=== PATIENT | female | born 1960 | race Caucasian/White ===

== ENCOUNTER 2021-07-21 22:02 | Emergency (ER) | payer MEDICARE, SELFPAY ==
[2021-07-21 22:02] VITALS: BP 162/96; PULSE 111; RESP 22; TEMP 36.8; O2SAT 96; BMI 32.3; BMI 35.5
--- NOTE | 2021-07-21 22:22 | ECG_ITS ---
APPROVED REPORT Exam: Resting ECG HR:113 bpm ECG Measurements Heart Rate 113 AXES QRSd 86 QRS 65 QT 494 T 92 QTc 677 Conclusion Atrial fibrillation with rapid ventricular response Possible Anterior infarct, age undetermined Abnormal ECG Electronically signed by : Charlie Mccormack MD 07/25/2021 21:02:54
--- NOTE | 2021-07-21 22:30 | XR_ITS ---
PROCEDURE INFORMATION: Exam: XR Chest Exam date and time: 07/21/2021 10:30 PM Age: 60 years old Clinical indication: Shortness of breath; Patient HX: SOA; Additional info: Increased hr TECHNIQUE: Imaging protocol: XR of the chest. Views: 1 view. COMPARISON: No relevant prior studies available. FINDINGS: Lungs: Unremarkable. No consolidation. Granulomatous change. Pleural spaces: Unremarkable. No pleural effusion. No pneumothorax. Heart/Mediastinum: Unremarkable. No cardiomegaly. Bones/joints: Unremarkable. IMPRESSION: No acute findings.
[2021-07-21 22:46] LABS: Basophils # 0.1 K/mm3 (0-0.2); Basophils % 0.6 % (0.1-2.0); Eosinophils # 0.2 K/mm3 (0.0-0.4); Hematocrit 42.3 % (37.0-47.0); Lymphocytes # 1.8 K/mm3 (0.7-4.5); Mean Corpuscular HGB Conc 33.2 g/dL (31.8-35.4); Mean Corpuscular Hemoglobin 29.4 pg (27.0-31.2); Mean Corpuscular Volume 88.4 fl (81-99); Mean Platelet Volume 8.4 fl (7.4-10.4); Monocytes # 0.8 K/mm3 (0.1-1.0); Neutrophils # 13.2 K/mm3 (1.8-7.8); Neutrophils % 82.2 % (37.0-80.0); Platelet Count 398 K/mm3 (142-424); Red Blood Count 4.78 M/mm3 (4.20-5.40); Red Cell Distribution Width 13.3 % (11.5-17.5); White Blood Count 16.1 K/mm3 (4.8-10.8)
[2021-07-21 22:49] LABS: MANUAL DIFFERENTIAL MANUAL DIFFERENTIAL (MANUAL DIFF)
[2021-07-21 23:00] LABS: Alanine Aminotransferase 16 U/L (12-78); Albumin Level 4.4 g/dl (3.5-5.0); Albumin/Globulin Ratio 1.3 (1.1-1.8); Alkaline Phosphatase 115 U/L (38-126); Anion Gap 18.3 mEq/L (5-15); Aspartate Amino Transferase 26 U/L (14-36); Bilirubin,Total 0.7 mg/dl (0.2-1.3); Blood Urea Nitrogen 26 mg/dl (7-17); Carbon Dioxide 22 mmol/L (22.0-30.0); Chloride 104 mmol/L (98-107); Creatinine Clearance Estimated 71 mL/min (50-200); Estimated Glomerular Filt Rate 42 ml/min (>60); GFR (African American) 50 ML/MIN (>60); Globulin 3.5 g/dL (1.3-3.2); Glucose 132 mg/dl (74-100); Potassium 4.3 mmoL/L (3.5-5.1); Sodium 140 mmol/L (136-145); Total Protein,Serum 7.9 g/dl (6.3-8.2)
[2021-07-21 23:05] LABS: C-Reactive Protein 39.2 mg/L (0-4); Magnesium 1.8 mg/dl (1.6-2.3)
[2021-07-21 23:09] LABS: Lymphocytes % 14 % (10-50); Monocytes % 11 % (2-9); Neutrophils % 75 % (42-76); Platelet Estimate Normal; RBC Morphology Normal; Total Cells Counted 100
[2021-07-21 23:18] LABS: Troponin I < 0.01 ng/ml (0.00-0.034)
[2021-07-21 23:19] LABS: Procalcitonin 0.176 ng/mL (0.0-2.0)
[2021-07-21 23:20] LABS: Erythrocyte Sedimentation Rate 25 mm/hr (0-30)
[2021-07-21 23:31] VITALS: BP 164/93; PULSE 109; RESP 21; O2SAT 97
[2021-07-22 00:04] VITALS: BP 161/90; PULSE 109; RESP 21; O2SAT 97
--- NOTE | 2021-07-22 00:56 | HMH.EDGENADL ---
ED Disposition Clinical Impression: Renal insufficiency Disposition: Home, Self-Care Condition on Discharge: Good Instructions: DI for Acute Pain -- Adult Additional Instructions: fluids and see pcp for follow up Referrals: Germán Dumas [Primary Care Provider] - - Critical Care Critical Care Time: No Attestation: On 07/21/21, the high probability of a clinically significant, sudden or life threatening deterioration of the following system(s) required my full and direct attention, intervention and personal management. The time I documented below is in addition to time spent performing reported procedures but includes the following listed in this critical care notation. Medical Decision Making - Medical Records Medical records reviewed: Yes: I reviewed the patient's medical records. - Asim Inquiry Pt receiving controlled substance: No Vital Signs: 07/21/21 22:02 07/21/21 23:31 07/22/21 00:04 Temperature 98.2 F Temperature Source Oral Pulse Rate 109 H 109 H Pulse Rate [Right] 111 H Respiratory Rate 22 21 21 Blood Pressure 164/93 H 161/90 H Blood Pressure [Right Arm] 162/96 H Blood Pressure Mean [Right Arm] 118 Blood Pressure Source [Right Arm] Automatic Cuff 02 Sat by Pulse Oximetry 96 97 97 Oxygen Delivery Method Room Air - Lab Data Lab results reviewed: Yes: I reviewed the patient's lab results. Lab Results 07/21/21 22:37: WBC 16.1 H, RBC 4.78, Hgb 14.0, Hct 42.3, MCV 88.4, MCH 29.4, MCHC 33.2, RDW 13.3, Plt Count 398, MPV 8.4, Neut % (Auto) 82.2 H, Lymph % (Auto) 11.0, [place] % (Auto) 5.0, Eos % (Auto) 1.0, Baso % (Auto) 0.6, Neut # (Auto) 13.2 H, Lymph # (Auto) 1.8, [place] # (Auto) 0.8, Eos # (Auto) 0.2, Baso # (Auto) 0.1, Total Counted 100, Neutrophils % (Manual) 75, Lymphocytes % (Manual) 14, Monocytes % (Manual) 11 H, Platelet Estimate Normal, RBC Morphology Normal, ESR 25 07/21/21 22:37: Sodium 140, Potassium 4.3, Chloride 104, Carbon Dioxide 22, Anion Gap 18.3 H, BUN 26 H, Creatinine 1.30 H, Estimated Creat Clear 71, Estimated GFR 42 L, Est GFR ( Amer) 50 L, Glucose 132 H, Calcium 10.0, Total Bilirubin 0.7, AST 26, ALT 16, Alkaline Phosphatase 115, C-Reactive Protein 39.2 H, Total Protein 7.9, Albumin 4.4, Globulin 3.5 H, Albumin/Globulin Ratio 1.3, Procalcitonin 0.176 07/21/21 22:37: Magnesium 1.8, Troponin I < 0.01 07/21/21 23:10: Lactate 1.0 Result diagrams: 07/21/21 22:37 07/21/21 22:37 Orders (Tests/Meds): ED MEDICATIONS Generic Name Dose Route Start Last Admin Trade Name Freq PRN Reason Stop Dose Admin Lactated Ringer's 1,000 mls @ 999 mls/hr 07/21/21 22:30 07/21/21 22:37 Lactated Ringer's 1000 Ml Bag IV 07/21/21 23:30 999 mls/hr .Q1H1M DELFINA Administration ORDERS Category Date Time Status Troponin I Q3H Lab 07/22/21 01:45 Ordered Troponin I Q3H Lab 07/22/21 04:45 Ordered UA [Urinalysis and Microscopic] Stat Lab 07/21/21 22:04 Ordered UDS [Drug Screen,Urine] Stat Lab 07/21/21 22:17 Ordered Blood Culture Stat Micro 07/21/21 23:10 Received - Radiology Data #1 Image(s): Chest Image Reviewed: Yes I have reviewed radiologist's interpretation Preliminary Findings: Normal/NAD - ECG Data Tracing #1 Arrhythmias present: sinus tach Ischemic changes: non-specific ST-T wave changes Medical Decision Narrative: stable exam and no acute labs - will ask pt to see pcp for follow up General Adult HPI - General Chief complaint: PAIN Stated complaint: Leg Cramps Time Seen by Provider: 07/21/21 23:15 Mode of Arrival: EMS Source of Information: Patient, EMS, Medical Record Limitations: No Limitations Description of Symptoms (Recalled from ER Triage Doc. by RN): Pt c/o leg cramping and tightness to legs. She states she took 3 or 4 of my room mate's Adderal . Pt states she has been laying down alot and has been depressed so she thought this might help her. Pt is jittery and is a poor historian, as she usualy seeks care at
[2021-07-22 01:22] VITALS: BP 159/89; PULSE 109; RESP 18; TEMP 36.7; O2SAT 97
== END 2021-07-22 01:26 | disposition home or self-care (01) ==
PROVIDERS: Emergency Provider Emergency Medicine; PCP Pediatrics
DX: N28.9 Disorder of kidney and ureter, unspecified (principal); R25.2 Cramp and spasm; F32.9 Major depressive disorder, single episode, unspecified
CPT/HCPCS: 71045; 80053; 83605; 83735; 84145; 84484; 85007; 85025; 85651; 86140; 87040; 93005; 96365; 99284

== ENCOUNTER 2022-02-08 01:52 | Emergency (ER) | payer MEDICARE, SELFPAY ==
[2022-02-08 01:28] VITALS: BP 177/101; PULSE 110; RESP 18; TEMP 36.8; O2SAT 99; BMI 29.9
--- NOTE | 2022-02-08 01:33 | CT_ITS ---
PROCEDURE INFORMATION: Exam: CT Abdomen And Pelvis With Contrast Exam date and time: 02/08/2022 2:14 AM Age: 61 years old Clinical indication: Nausea and vomiting; Prior surgery; Patient HX: Abdominal pain, n/v/d. PT states HX of large colon removed, multiple hernia repairs; Additional info: Abd apin TECHNIQUE: Imaging protocol: Computed tomography of the abdomen and pelvis with contrast. Radiation optimization: All CT scans at this facility use at least one of these dose optimization techniques: automated exposure control; mA and/or kV adjustment per patient size (includes targeted exams where dose is matched to clinical indication); or iterative reconstruction. Contrast material: ISOVUE; Contrast volume: 75 ml; Contrast route: IV; COMPARISON: CR XR CHEST PORTABLE 07/21/2021 10:44 PM FINDINGS: Mediastinal space: There is concentric thickening of the esophagus. No obstruction is noted. Liver: Normal. No mass. Gallbladder and bile ducts: The patient is status post cholecystectomy. Mild prominence of the biliary system is noted which can be a normal finding after cholecystectomy. Pancreas: Normal. No ductal dilation. Spleen: Normal. No splenomegaly. Adrenal glands: Normal. No mass. Kidneys and ureters: Normal. No hydronephrosis. Stomach and bowel: Patient is status post subtotal colectomy. And ileo sigmoid anastomosis is noted in the pelvis. Appendix: No evidence of appendicitis. Intraperitoneal space: Unremarkable. No free air. No significant fluid collection. Vasculature: Unremarkable. No abdominal aortic aneurysm. Lymph nodes: Unremarkable. No enlarged lymph nodes. Urinary bladder: Unremarkable as visualized. Reproductive: Unremarkable as visualized. Bones/joints: Unremarkable. No acute fracture. Soft tissues: Unremarkable. IMPRESSION: 1. Concentric thickening of the esophagus, this may be secondary to esophagitis or other inflammatory condition. No obstruction or perforation identified. Consider upper endoscopy as clinically indicated. 2. Status post subtotal colectomy. 3. Status post cholecystectomy.
[2022-02-08 01:43] LABS: Basophils # 0.1 K/mm3 (0-0.2); Basophils % 0.4 % (0.1-2.0); Eosinophils # 0.1 K/mm3 (0.0-0.4); Eosinophils % 0.7 % (0.1-12.0); Hematocrit 48.5 % (37.0-47.0); Hemoglobin 16.4 g/dL (12.2-16.2); Lymphocytes # 0.8 K/mm3 (0.7-4.5); Lymphocytes % 5.2 % (10-50); Mean Corpuscular HGB Conc 33.9 g/dL (31.8-35.4); Mean Corpuscular Hemoglobin 29.3 pg (27.0-31.2); Mean Corpuscular Volume 86.3 fl (81-99); Mean Platelet Volume 7.8 fl (7.4-10.4); Monocytes # 0.3 K/mm3 (0.1-1.0); Monocytes % 2.2 % (1.7-9.3); Neutrophils % 91.5 % (37.0-80.0); Platelet Count 533 K/mm3 (142-424); Red Blood Count 5.61 M/mm3 (4.20-5.40); White Blood Count 15.3 K/mm3 (4.8-10.8)
[2022-02-08 01:49] LABS: MANUAL DIFFERENTIAL MANUAL DIFFERENTIAL (MANUAL DIFF)
[2022-02-08 01:57] LABS: Chloride 102 mmol/L (98-107); Potassium 4.4 mmoL/L (3.5-5.1); Sodium 134 mmol/L (136-145)
[2022-02-08 02:00] LABS: Alanine Aminotransferase 23 U/L (12-78); Albumin Level 4.6 g/dl (3.5-5.0); Albumin/Globulin Ratio 1.3 (1.1-1.8); Alkaline Phosphatase 161 U/L (38-126); Anion Gap 18.4 mEq/L (5-15); Aspartate Amino Transferase 37 U/L (14-36); Bilirubin,Total 0.9 mg/dl (0.2-1.3); Blood Urea Nitrogen 33 mg/dl (7-17); Calcium 9.4 mg/dl (8.4-10.2); Carbon Dioxide 18 mmol/L (22.0-30.0); Creatinine Clearance Estimated 67 mL/min (50-200); Estimated Glomerular Filt Rate 50 ml/min (>60); GFR (African American) 61 ML/MIN (>60); Globulin 3.6 g/dL (1.3-3.2); Glucose 165 mg/dl (74-100); Lipase 46 U/L (23-300); Total Protein,Serum 8.2 g/dl (6.3-8.2)
--- NOTE | 2022-02-08 02:19 | PC.NURSE ---
patient to CT
--- NOTE | 2022-02-08 02:23 | HMH.EDGENADL ---
ED Disposition Clinical Impression: Esophageal stricture Disposition: Home, Self-Care Condition on Discharge: Good Instructions: DI for Acute Abdominal Pain Additional Instructions: Please return to the ED for any new or worsening symptoms. Please follow-up with your primary care provider regarding her esophageal stricture. Referrals: Germán Dumas [Primary Care Provider] - - Critical Care Critical Care Time: No Attestation: On 02/08/22, the high probability of a clinically significant, sudden or life threatening deterioration of the following system(s) required my full and direct attention, intervention and personal management. The time I documented below is in addition to time spent performing reported procedures but includes the following listed in this critical care notation. Medical Decision Making - Medical Records Medical records reviewed: Yes: I reviewed the patient's medical records. - Asim Inquiry Pt receiving controlled substance: No Vital Signs: 02/08/22 01:28 Temperature 98.3 F Temperature Source Oral Pulse Rate [Right] 110 H Respiratory Rate 18 Blood Pressure [Right Arm] 177/101 H Blood Pressure Mean [Right Arm] 126 02 Sat by Pulse Oximetry 99 - Lab Data Lab Results 02/08/22 01:28: WBC 15.3 H, RBC 5.61 H, Hgb 16.4 H, Hct 48.5 H, MCV 86.3, MCH 29.3, MCHC 33.9, RDW 14.0, Plt Count 533 H, MPV 7.8, Neut % (Auto) 91.5 H, Lymph % (Auto) 5.2 L, [place] % (Auto) 2.2, Eos % (Auto) 0.7, Baso % (Auto) 0.4, Neut # (Auto) 14.0 H, Lymph # (Auto) 0.8, [place] # (Auto) 0.3, Eos # (Auto) 0.1, Baso # (Auto) 0.1, Total Counted 100, Neutrophils % (Manual) 90 H, Lymphocytes % (Manual) 7 L, Monocytes % (Manual) 2, Basophils % (Manual) 1.0, Platelet Estimate Normal, RBC Morphology Normal 02/08/22 01:28: Sodium 134 L, Potassium 4.4, Chloride 102, Carbon Dioxide 18 L, Anion Gap 18.4 H, BUN 33 H, Creatinine 1.10 H, Estimated Creat Clear 67, Estimated GFR 50 L, Est GFR ( Amer) 61, Glucose 165 H, Calcium 9.4, Total Bilirubin 0.9, AST 37 H, ALT 23, Alkaline Phosphatase 161 H, Total Protein 8.2, Albumin 4.6, Globulin 3.6 H, Albumin/Globulin Ratio 1.3, Lipase 46 02/08/22 01:28: Lipase 46 02/08/22 02:39: Urine Color Yellow, Urine Appearance Clear, Urine pH 5.5, Ur Specific [place] 1.025, Urine Protein Trace, Urine Glucose (UA) Negative, Urine Ketones Trace, Urine Blood Trace-i, Urine Nitrate Negative, Urine Bilirubin Negative, Urine Urobilinogen 0.2, Ur Leukocyte Esterase Trace, Urine WBC 5-10, Ur Squamous Epith Cells Tntc, Urine Bacteria 1+, Hyaline Casts 3-5, Urine Mucus 1+, Urine Yeast 1+ Result diagrams: 02/08/22 01:28 02/08/22 01:28 Orders (Tests/Meds): ED MEDICATIONS Generic Name Dose Route Start Last Admin Trade Name Freq PRN Reason Stop Dose Admin Lactated Ringer's 1,000 mls @ 999 mls/hr 02/08/22 01:45 02/08/22 01:36 Lactated Ringer's 1000 Ml Bag IV 02/08/22 02:45 999 mls/hr .Q1H1M DELFINA Administration Discontinued Medications Generic Name Dose Route Start Last Admin Trade Name Freq PRN Reason Stop Dose Admin Hydromorphone HCl 1 mg 02/08/22 01:33 02/08/22 01:36 Hydromorphone 2mg/Ml Syringe IV 02/08/22 01:34 1 mg ONCE ONE Administration Iopamidol 75 ml 02/08/22 02:19 02/08/22 02:30 Iopamidol-370 (76%);100ml Bottle IV 02/08/22 02:20 75 ml ONCE ONE Administration Prochlorperazine Edisylate 10 mg 02/08/22 01:33 02/08/22 01:36 Prochlorperazine 10mg/2ml Vial IV 02/08/22 01:34 10 mg ONCE ONE Administration Sodium Chloride 10 ml 02/08/22 02:19 02/08/22 02:30 Sodium Chloride 0.9% 10ml Syr (Rad Only) IV 02/08/22 02:20 10 ml ONCE ONE Administration ORDERS Category Date Time Status Rapid PCR Covid and Flu A/B Stat Lab 02/08/22 01:37 Ordered Medical Decision Narrative: Patient is a 61-year-old female who presents the ED today for further evaluation of epigastric abdominal pain which was sudden onset. Patient appears to be in moderate pain on
[2022-02-08 02:41] LABS: Lymphocytes % 7 % (10-50); Monocytes % 2 % (2-9); Neutrophils % 90 % (42-76); Platelet Estimate Normal; RBC Morphology Normal; Total Cells Counted 100
--- NOTE | 2022-02-08 02:41 | PC.NURSE ---
patient back from CT and in bathroom
[2022-02-08 02:47] LABS: Microscopic, Urine URINE MICROSCOPIC (MICROSCOPIC)
[2022-02-08 02:50] LABS: Appearance,Urine CLEAR (Clear); Blood, Urine TRACE-I (Negative); Color,Urine YELLOW (Yellow); Glucose,Urine (UA) Negative (Negative); Ketones,Urine TRACE (Negative); Leukocyte Esterase,Urine TRACE (Negative); Nitrate,Urine Negative (Negative); PH,Urine 5.5 (5.0-8.5); Protein,Urine TRACE (Negative); Specific Gravity, Urine 1.025 (1.005-1.030); Urobilinogen,Urine 0.2 EU/dl (0.2)
[2022-02-08 02:52] LABS: Lipase 46 U/L (23-300)
[2022-02-08 02:56] LABS: Bilirubin,Urine Negative (Negative)
[2022-02-08 03:03] LABS: Bacteria,Urine 1+ /lpf; Mucus,Urine 1+ /lpf; Squamous Epithelial Cell,Urine TNTC #/hpf (0-5); Yeast,Urine 1+ /lpf
--- NOTE | 2022-02-08 03:22 | PC.NURSE ---
PT UPDATED AND REPOSITIONED FOR COMFORT. PT REPORTS THAT SHE FEELS MUCH BETTER. WCM.
[2022-02-08 04:19] VITALS: BP 176/91; PULSE 106; RESP 18; TEMP 37.1; O2SAT 95
== END 2022-02-08 04:30 | disposition home or self-care (01) ==
PROVIDERS: Emergency Provider Student in an Organized Health Care Education/Training Program; PCP Pediatrics
DX: K22.2 Esophageal obstruction (principal); R11.10 Vomiting, unspecified
CPT/HCPCS: 74177; 80053; 81001; 83690; 85007; 85025; 96365; 96366; 99284; Q9967

== ENCOUNTER 2022-03-13 19:15 | Observation (INO) | payer MEDICARE, SELFPAY ==
[2022-03-13 19:22] VITALS: BP 159/94; PULSE 99; RESP 18; TEMP 37.2; O2SAT 99; BMI 31.8
[2022-03-13 19:39] LABS: Basophils # 0.2 K/mm3 (0-0.2); Eosinophils # 0.1 K/mm3 (0.0-0.4); Eosinophils % 1.5 % (0.1-12.0); Hematocrit 40.7 % (37.0-47.0); Hemoglobin 13.7 g/dL (12.2-16.2); Lymphocytes # 1.5 K/mm3 (0.7-4.5); Lymphocytes % 17.1 % (10-50); Mean Corpuscular HGB Conc 33.8 g/dL (31.8-35.4); Mean Corpuscular Hemoglobin 29.6 pg (27.0-31.2); Mean Corpuscular Volume 87.6 fl (81-99); Mean Platelet Volume 7.5 fl (7.4-10.4); Monocytes # 0.4 K/mm3 (0.1-1.0); Monocytes % 4.9 % (1.7-9.3); Neutrophils # 6.7 K/mm3 (1.8-7.8); Neutrophils % 74.5 % (37.0-80.0); Platelet Count 424 K/mm3 (142-424); Red Blood Count 4.64 M/mm3 (4.20-5.40)
[2022-03-13 19:43] LABS: Chloride 106 mmol/L (98-107); Potassium 3.3 mmoL/L (3.5-5.1); Sodium 137 mmol/L (136-145)
[2022-03-13 19:46] LABS: Alanine Aminotransferase 15 U/L (12-78); Albumin/Globulin Ratio 1.3 (1.1-1.8); Alkaline Phosphatase 145 U/L (38-126); Amylase 61 U/L (30-110); Anion Gap 10.3 mEq/L (5-15); Aspartate Amino Transferase 23 U/L (14-36); Bilirubin,Total 0.7 mg/dl (0.2-1.3); Blood Urea Nitrogen 4 mg/dl (7-17); Carbon Dioxide 24 mmol/L (22.0-30.0); Creatinine Clearance Estimated 74 mL/min (50-200); Estimated Glomerular Filt Rate 101 ml/min (>60); GFR (African American) 122 ML/MIN (>60); Glucose 100 mg/dl (74-100); Lipase 33 U/L (23-300)
--- NOTE | 2022-03-13 19:59 | XR_ITS ---
PROCEDURE INFORMATION: Exam: XR Chest Exam date and time: 03/13/2022 7:56 PM Age: 61 years old Clinical indication: Cough; Sternal or substernal pain TECHNIQUE: Imaging protocol: XR of the chest. Views: 2 views. COMPARISON: CR XR CHEST PORTABLE 07/21/2021 10:44 PM FINDINGS: Lungs: Unremarkable. No consolidation. Pleural spaces: No pleural effusion. No pneumothorax. Heart/Mediastinum: Normal heart size. Bones/joints: Bones are osteopenic. Mild degenerative changes. Other findings: Several small radiopacities are noted to project over the lower chest, shown to the external to the patient on the lateral image. IMPRESSION: No acute cardiopulmonary finding.
[2022-03-13 20:36] LABS: Adenovirus F 40/41, stool Not Detected (NotDetected); Astrovirus Not Detected (NotDetected); Campylobacter Not Detected (NotDetected); Clostridium Difficile A/B, PCR Not Detected (NotDetected); Cryptosporidium Not Detected (NotDetected); Cyclospora Cayetanesis Not Detected (NotDetected); Entamoeba histolytica Not Detected (NotDetected); Enteroaggregative E coli Not Detected (NotDetected); Enteropathogenic E coli Not Detected (NotDetected); Enterotoxigenic E coli Not Detected (NotDetected); Giardia lamblia Not Detected (NotDetected); Norovirus Not Detected (NotDetected); Plesimonas Shigalloides, PCR Not Detected (NotDetected); Rotavirus A Not Detected (NotDetected); Salmonella, PCR Not Detected (NotDetected); Sapovirus Not Detected (NotDetected); Shiga-like toxin E coli Not Detected (NotDetected); Shigella Enterovasive E coli Not Detected (NotDetected); Vibrio Cholerae Not Detected (NotDetected); Vibrio, PCR Not Detected (NotDetected); Yersinia Entercolitica, PCR Not Detected (NotDetected)
--- NOTE | 2022-03-13 20:51 | HMH.EDNVD ---
ED Disposition Clinical Impression: Gastritis Qualifiers: Gastritis type: unspecified gastritis Chronicity: acute Gastritis bleeding: without bleeding Qualified Code(s): K29.00 - Acute gastritis without bleeding Disposition: Admitted as Observation Condition on Discharge: Fair - Critical Care Critical Care Time: No Attestation: On 03/13/22, the high probability of a clinically significant, sudden or life threatening deterioration of the following system(s) required my full and direct attention, intervention and personal management. The time I documented below is in addition to time spent performing reported procedures but includes the following listed in this critical care notation. Medical Decision Making - Medical Records Medical records reviewed: Yes: I reviewed the patient's medical records. - Asim Inquiry Pt receiving controlled substance: No Vital Signs: 03/13/22 19:22 03/13/22 23:48 Temperature 98.9 F Temperature Source Oral Pulse Rate 73 Pulse Rate [Apical] 99 H Respiratory Rate 18 Blood Pressure 172/65 H Blood Pressure [Right Arm] 159/94 H Blood Pressure Mean [Right Arm] 115 Blood Pressure Source [Right Arm] Automatic Cuff Blood Pressure Position [Right Arm] Sitting 02 Sat by Pulse Oximetry 99 99 Oxygen Delivery Method Room Air Room Air - Lab Data Lab results reviewed: Yes: I reviewed the patient's lab results. Lab Results 03/13/22 19:17: SARS-CoV-2 (PCR) Not detected, Influenza A Untype (PCR) Not detected, Influenza Type B (PCR) Not detected 03/13/22 19:25: WBC 9.0, RBC 4.64, Hgb 13.7, Hct 40.7, MCV 87.6, MCH 29.6, MCHC 33.8, RDW 14.0, Plt Count 424, MPV 7.5, Neut % (Auto) 74.5, Lymph % (Auto) 17.1, [place] % (Auto) 4.9, Eos % (Auto) 1.5, Baso % (Auto) 2.0, Neut # (Auto) 6.7, Lymph # (Auto) 1.5, [place] # (Auto) 0.4, Eos # (Auto) 0.1, Baso # (Auto) 0.2 03/13/22 19:25: Sodium 137, Potassium 3.3 L, Chloride 106, Carbon Dioxide 24, Anion Gap 10.3, BUN 4 L, Creatinine 0.60, Estimated Creat Clear 74, Estimated GFR 101, Est GFR ( Amer) 122, Glucose 100, Calcium 10.0, Total Bilirubin 0.7, AST 23, ALT 15, Alkaline Phosphatase 145 H, Total Protein 7.0, Albumin 4.0, Globulin 3.0, Albumin/Globulin Ratio 1.3, Amylase 61, Lipase 33 03/13/22 20:30: Stl Aeromonas (PCR) Not detected, Stl C. cayetanensis PCR Not detected, Stool Rotavirus (PCR) Not detected, Stl Adenov F 40/41 PCR Not detected, Stool Astrovirus (PCR) Not detected, Stool Campylobacter PCR Not detected, Stl C.difficile Tox PCR Not detected, Stool Cryptosporidium PCR Not detected, Stl E.coli Shiga Tox PCR Not detected, Stool E coli O157 PCR Not detected, Stl Enterotoxigenic E PCR Not detected, Stool EPEC (PCR) Not detected, Stool EAEC (PCR) Not detected, Stl E. histolytica PCR Not detected, Stool Giardia Lamblia PCR Not detected, Stool Salmonella PCR Not detected, Stool Sapovirus (PCR) Not detected, Stl P. shigelloides PCR Not detected, Stl Shigella/EIEC PCR Not detected, St Y.enterocolitica PCR Not detected, Stool Vibrio (PCR) Not detected, Stl Vibrio cholerae PCR Not detected, Stl Norovirus GI/GII PCR Not detected Result diagrams: 03/13/22 19:25 03/13/22 19:25 Orders (Tests/Meds): ED MEDICATIONS Generic Name Dose Route Start Last Admin Trade Name Freq PRN Reason Stop Dose Admin Lactated Ringer's 1,000 mls @ 999 mls/hr 03/13/22 19:30 03/13/22 19:33 Lactated Ringer's 1000 Ml Bag IV 03/13/22 20:30 999 mls/hr .Q1H1M DELFINA Administration Lactated Ringer's 1,000 mls @ 125 mls/hr 03/13/22 22:15 03/13/22 23:11 Lactated Ringer's 1000 Ml Bag IV 04/12/22 22:14 125 mls/hr .Q8H DELFINA Administration Pantoprazole Sodium 40 mg 03/13/22 23:45 Pantoprazole 40mg Vial IV 04/12/22 23:44 BID DELFINA Prochlorperazine Edisylate 10 mg 04/25/22 23:57 Prochlorperazine 10mg/2ml Vial IV 04/12/22 23:56 Q4HP PRN Vomiting Sodium Chloride 8 ml 03/13/22 23:19 Sodium Chloride 0.9% 10ml Vial IV 04/12/22 23:18 NEED
--- NOTE | 2022-03-13 22:10 | PC.NURSE ---
Patient is currently sleeping. No complaints
--- NOTE | 2022-03-13 22:19 | CT_ITS ---
PROCEDURE INFORMATION: Exam: CT Abdomen And Pelvis With Contrast Exam date and time: 03/13/2022 10:24 PM Age: 61 years old Clinical indication: Nausea; Abdominal pain TECHNIQUE: Imaging protocol: Computed tomography of the abdomen and pelvis with contrast. Radiation optimization: All CT scans at this facility use at least one of these dose optimization techniques: automated exposure control; mA and/or kV adjustment per patient size (includes targeted exams where dose is matched to clinical indication); or iterative reconstruction. Contrast material: ISOVUE; Contrast volume: 75 ml; Contrast route: IV; COMPARISON: CT ABDOMEN PELVIS W CON 02/08/2022 2:14 AM FINDINGS: Lungs: The visualized lung bases are unremarkable. Liver: Unremarkable. No intrahepatic biliary dilation. Gallbladder and bile ducts: Cholecystectomy. No common bile duct dilation. Pancreas: Unremarkable. No main pancreatic duct dilation. Spleen: Normal. No splenomegaly. Adrenal glands: Unremarkable. Kidneys and ureters: Mild bilateral renal cortical thinning/scarring. A 0.9 cm left upper pole renal lesion has macroscopic fat, likely an angiomyolipoma. No hydronephrosis. Stomach and bowel: Subtotal colectomy with anastomosis in the pelvis. No bowel dilation or obstruction. Distal gastric wall thickening suggesting gastritis, similar to prior study. Small to moderate size hiatal hernia. Distal esophageal wall thickening suggesting esophagitis. Appendix: Absent. Intraperitoneal space: No pneumoperitoneum. No ascites. Arteries: Scattered mild atherosclerotic plaque. No abdominal aortic aneurysm. Lymph nodes: No enlarged lymph nodes. Urinary bladder: Bladder decompressed, limiting evaluation. Reproductive: Hysterectomy. Bones/joints: Osteopenia. Spondylosis, greatest distally. Severe, end-stage right hip osteoarthrosis with [id number] articulation, subchondral sclerosis/cyst formation, and prominent osteophytosis. There appears to be mild right hip capsular thickening/synovitis. No acute fracture. Soft tissues: Unremarkable. IMPRESSION: 1. No acute finding or specific etiology for symptoms identified. 2. Chronic/ancillary findings as above. Hiatal hernia, probable esophagitis, and probable gastritis are similar to prior exam of 02/08/2022. If not already performed, these may be correlated with endoscopy as appropriate.
[2022-03-13 23:08] LABS: Coronavirus 19, PCR Not Detected (NotDetected); Influenza A, PCR Not Detected (NotDetected); Influenza B, PCR Not Detected (NotDetected)
[2022-03-13 23:48] VITALS: BP 172/65; PULSE 73; O2SAT 99
[2022-03-14 00:01] VITALS: BP 158/72; PULSE 66; O2SAT 83
[2022-03-14 00:39] VITALS: BP 138/68; PULSE 82; RESP 20; TEMP 36.9; O2SAT 94
--- NOTE | 2022-03-14 00:46 | PC.NURSE ---
patient up to floor via wheelchair @ this time.
[2022-03-14 01:08] VITALS: BMI 30.3
[2022-03-14 04:00] VITALS: BP 141/61; PULSE 66; RESP 16; TEMP 36.7; O2SAT 94
--- NOTE | 2022-03-14 05:46 | PC.NURSE ---
pt has rested since arriving to floor, up to bathroom one time with standby assist and cane, had some nausea this shift, but no diarrhea noted since coming to floor, remains on room air
[2022-03-14 06:43] LABS: Basophils # 0.1 K/mm3 (0-0.2); Basophils % 0.9 % (0.1-2.0); Eosinophils # 0.1 K/mm3 (0.0-0.4); Eosinophils % 1.7 % (0.1-12.0); Hematocrit 36.5 % (37.0-47.0); Lymphocytes # 1.7 K/mm3 (0.7-4.5); Mean Corpuscular HGB Conc 33.5 g/dL (31.8-35.4); Mean Corpuscular Hemoglobin 29.7 pg (27.0-31.2); Mean Corpuscular Volume 88.6 fl (81-99); Mean Platelet Volume 7.7 fl (7.4-10.4); Monocytes # 0.5 K/mm3 (0.1-1.0); Monocytes % 5.7 % (1.7-9.3); Neutrophils # 5.7 K/mm3 (1.8-7.8); Neutrophils % 70.8 % (37.0-80.0); Platelet Count 334 K/mm3 (142-424); Red Blood Count 4.12 M/mm3 (4.20-5.40); Red Cell Distribution Width 13.9 % (11.5-17.5)
[2022-03-14 07:06] LABS: Chloride 108 mmol/L (98-107); Potassium 3.8 mmoL/L (3.5-5.1); Sodium 136 mmol/L (136-145)
[2022-03-14 07:09] LABS: Anion Gap 9.8 mEq/L (5-15); Blood Urea Nitrogen 6 mg/dl (7-17); Carbon Dioxide 22 mmol/L (22.0-30.0); Cholesterol 156 mg/dl (140-200); Creatinine Clearance Estimated 71 mL/min (50-200); Estimated Glomerular Filt Rate 125 ml/min (>60); GFR (African American) 151 ML/MIN (>60); Triglycerides 78 mg/dl (30-150); VLDL Cholesterol 16 mg/dL (0-40)
[2022-03-14 07:10] LABS: Calcium 9.3 mg/dl (8.4-10.2); Chol/HDL Ratio 2.3 (1-3.5); Glucose 65 mg/dl (74-100); HDL Cholesterol 69 mg/dl (40-60); Magnesium 1.6 mg/dl (1.6-2.3)
--- NOTE | 2022-03-14 07:18 | PC.NURSE ---
Dr. Stark notified of consult on pt.
[2022-03-14 07:21] LABS: Direct LDL Cholesterol 69.11 mg/dL (100-129)
--- NOTE | 2022-03-14 07:22 | P.CONPHA_ITS ---
[facility] VTE Monitoring - Patient Demographics Admission date: 03/13/22 Report Date: 03/14/22 Time: 07:22 Allergies/Adverse Reactions: Patient Allergies Penicillins Allergy (Verified 03/14/22 00:53) Sulfa (Sulfonamide Antibiotics) Allergy (Verified 03/14/22 00:53) Height: 1.6 m Weight: 77.734 kg Patient Problems: Current Active Problems Gastritis (Acute) - VTE Risk Labs: VTE Related Lab Results Hgb 13.7 g/dL (12.2-16.2) 03/13/22 19:25 Hct 36.5 % (37.0-47.0) L 03/14/22 06:22 Plt Count 334 K/mm3 (142-424) 03/14/22 06:22 BUN 6 mg/dl (7-17) L D 03/14/22 06:22 Creatinine 0.50 mg/dl (0.52-1.04) L 03/14/22 06:22 Estimated Creat Clear 71 mL/min (50-200) 03/14/22 06:22 VTE Score: 4 VTE Risk Level: Low Risk - Prophylaxis VTE Prophylaxis Ordered?: Yes Types of VTE Prophylaxis: TEDS Knee High Location of Applied Device: Bilateral Lower Extremeties
--- NOTE | 2022-03-14 07:23 | HMH.PHAINT ---
MEDICATION RECONCILIATION COMPLETED ON PATIENT USING EXTERNAL FILL HISTORY FROM PHARMACY. -JULIO HELTON, ZAKD
--- NOTE | 2022-03-14 07:26 | HMH.GSCON ---
*Admission Date: 03/13/22 *Reason for consult:: Dysphagia, gastritis, nausea/vomiting/diarrhea *History of present illness: This is a 61-year-old female presented to the emergency department overnight with increasing nausea, vomiting, and diarrhea. She was diagnosed with likely gastroenteritis and possible gastritis. She also reports intermittent difficulty swallowing that has been a little worse over the past few days . Review of Systems - Constitutional Denies chills - *Cardiovascular Denies chest pain - *Respiratory Denies cough - *Gastrointestinal Reports difficulty swallowing, Reports loose stools, Reports nausea, Reports vomiting - *Neurologic Denies headache(s), Denies seizure-like activity [facility] History Medical History: Denies:: Cancer, Diabetes Mellitus Type 1, Diabetes Mellitus Type 2, MRSA *Have you ever received a pneumonia vaccine?: No *Have you received a flu vaccine this season?: No Other Surgeries: Yes: Colon Resection, Hernia Repair Amputation: No Fractures: No - *Social History Smoking Status: Current every day smoker Tobacco Type: cigarettes # Packs/Day (cigarettes): 1 Alcohol Intake: never *Occupational Status:: disabled *Travel in the last 8 weeks: None Family Hx:: No significant family history Meds Home Medications Medication Instructions Recorded Confirmed Type Potassium Chloride 10 meq PO BID 03/13/22 03/14/22 History Allergies Allergy/AdvReac Type Severity Reaction Status Date / Time Penicillins Allergy Verified 03/14/22 00:53 Sulfa (Sulfonamide Allergy Verified 03/14/22 00:53 Antibiotics) Exam Vital signs and Labs for Last 24 Hours: Temp Pulse Resp BP Pulse Ox 98.1 F 66 16 141/61 H 94 L 03/14/22 04:00 03/14/22 04:00 03/14/22 04:00 03/14/22 04:00 03/14/22 04:00 Laboratory Results - last 24 hr 03/13/22 19:17: SARS-CoV-2 (PCR) Not detected, Influenza A Untype (PCR) Not detected, Influenza Type B (PCR) Not detected 03/13/22 19:25: WBC 9.0, RBC 4.64, Hgb 13.7, Hct 40.7, MCV 87.6, MCH 29.6, MCHC 33.8, RDW 14.0, Plt Count 424, MPV 7.5, Neut % (Auto) 74.5, Lymph % (Auto) 17.1, [place] % (Auto) 4.9, Eos % (Auto) 1.5, Baso % (Auto) 2.0, Neut # (Auto) 6.7, Lymph # (Auto) 1.5, [place] # (Auto) 0.4, Eos # (Auto) 0.1, Baso # (Auto) 0.2 03/13/22 19:25: Sodium 137, Potassium 3.3 L, Chloride 106, Carbon Dioxide 24, Anion Gap 10.3, BUN 4 L, Creatinine 0.60, Estimated Creat Clear 74, Estimated GFR 101, Est GFR ( Amer) 122, Glucose 100, Calcium 10.0, Total Bilirubin 0.7, AST 23, ALT 15, Alkaline Phosphatase 145 H, Total Protein 7.0, Albumin 4.0, Globulin 3.0, Albumin/Globulin Ratio 1.3, Amylase 61, Lipase 33 03/13/22 20:30: Stl Aeromonas (PCR) Not detected, Stl C. cayetanensis PCR Not detected, Stool Rotavirus (PCR) Not detected, Stl Adenov F 40/41 PCR Not detected, Stool Astrovirus (PCR) Not detected, Stool Campylobacter PCR Not detected, Stl C.difficile Tox PCR Not detected, Stool Cryptosporidium PCR Not detected, Stl E.coli Shiga Tox PCR Not detected, Stool E coli O157 PCR Not detected, Stl Enterotoxigenic E PCR Not detected, Stool EPEC (PCR) Not detected, Stool EAEC (PCR) Not detected, Stl E. histolytica PCR Not detected, Stool Giardia Lamblia PCR Not detected, Stool Salmonella PCR Not detected, Stool Sapovirus (PCR) Not detected, Stl P. shigelloides PCR Not detected, Stl Shigella/EIEC PCR Not detected, St Y.enterocolitica PCR Not detected, Stool Vibrio (PCR) Not detected, Stl Vibrio cholerae PCR Not detected, Stl Norovirus GI/GII PCR Not detected 03/14/22 06:22: WBC 8.0, RBC 4.12 L, Hct 36.5 L, MCV 88.6, MCH 29.7, MCHC 33.5, RDW 13.9, Plt Count 334, MPV 7.7, Neut % (Auto) 70.8, Lymph % (Auto) 21.0, [place] % (Auto) 5.7, Eos % (Auto) 1.7, Baso % (Auto) 0.9, Neut # (Auto) 5.7, Lymph # (Auto) 1.7, [place] # (Auto) 0.5, Eos # (Auto) 0.1, Baso # (Auto) 0.1 03/14/22 06:22: Sodium 136, Potassium 3.8, Chloride 108 H, Carbon Dioxide 22, Anion Gap 9.8, BUN 6 L D, Creatinine 0.50 L, Estimated
[2022-03-14 07:32] LABS: Hemoglobin 12.2 g/dL (12.2-16.2)
[2022-03-14 08:00] VITALS: BP 158/84; PULSE 78; RESP 17; TEMP 36.8; O2SAT 95
--- NOTE | 2022-03-14 10:05 | HMH.HP ---
*Admission Date: 03/13/22 <MaravillaRadha lynn - 03/14/22 10:21> *Chief complaint: Nausea, vomiting, diarrhea and abdominal pain <Radha Maravilla 03/14/22 10:21> *History of present illness: Ms. Walton is a 61-year-old female patient who presented to [facility] with progressive nausea vomiting and diarrhea and abdominal pain over the past 3 days. She states she has been unable to retain food and fluids. She states she is voiding QS. She gives a history of having difficulty for the past few months with the same although not nearly as severe. She states her had a similar virus the past week with the same symptoms. With evaluation in the emergency room chest x-ray revealed no acute cardiopulmonary findings. He also had a CT of the abdomen/pelvis which revealed no acute findings or specific etiology for symptoms identified. Chronic/ancillary findings with hiatal hernia and probable esophagitis as well as probable gastritis similar to prior exam of 02/08/2022. Laboratory data showed a normal CBC chemistries did show low potassium at 3.3 with repeat this a.m. of 3.8. BUN was 4 and creatinine was 0.6. Liver function studies showed an alkaline phosphatase elevated at 145 and otherwise was normal. Amylase was normal at 61 and lipase normal at 33. She did receive several IV boluses along with antiemetics and pain medicine. She was also given an IV PPI. She was thus admitted for further evaluation and treatment. She was seen by surgeon Dr. Stark this morning Who noted dysphagia and ordered a barium swallow. With recommendations for an EGD in the near future to be completed as an outpatient. With exam patient continues to be nauseated. She says she has had vomiting and diarrhea since being in the emergency room. She remains n.p.o. <RenitaRadha 03/14/22 10:21> [facility] [place] History Medical History: Denies:: Cancer, Diabetes Mellitus Type 1, Diabetes Mellitus Type 2, MRSA <Radha Maravilla 03/14/22 10:21> *Have you ever received a pneumonia vaccine?: No <Radha Maravilla 03/14/22 10:21> *Have you received a flu vaccine this season?: No <Radha Maravilla 03/14/22 10:21> Other Surgeries: Yes: Colon Resection, Hernia Repair <Radha Maravilla 03/14/22 10:21> Amputation: No <Radha Maravilla 03/14/22 10:21> Fractures: No <Radha Maravilla 03/14/22 10:21> - *Social History Smoking Status: Current every day smoker <Radha Maravilla 03/14/22 10:21> Tobacco Type: cigarettes <Radha Maravilla 03/14/22 10:21> # Packs/Day (cigarettes): 1 <Radha Maravilla 03/14/22 10:21> Alcohol Intake: never <Radha Maravilla 03/14/22 10:21> *Occupational Status:: disabled <Radha Maravilla 03/14/22 10:21> Housing: house <Radha Maravilla 03/14/22 10:21> Household Members: family <Radha Maravilla 03/14/22 10:21> *Travel in the last 8 weeks: None <Radha Maravilla 03/14/22 10:21> Family Hx:: No significant family history <Radha Maravilla 03/14/22 10:21> Review of Systems - Constitutional Reports lack of energy, Denies fever(s) <Radha Maravilla 03/14/22 10:21> - Eyes Denies change in vision <Radha Maravilla 03/14/22 10:21> - ENT Denies ear pain, Denies sore throat <Radha Maravilla 03/14/22 10:21> - *Cardiovascular Reports chest pain (Midsternal with cough and with vomiting), Denies shortness of breath <Radha Maravilla 03/14/22 10:21> - *Respiratory Denies chest congestion, Denies cough, Denies shortness of breath <Radha Maravilla 03/14/22 10:21> - *Gastrointestinal Reports abdominal pain, Reports loose stools, Reports nausea, Reports vomiting, Denies vomiting blood, Denies bright, red blood in stools, Denies black, tarry stools <Radha Maravilla 03/14/22 10:21> - *Genitourinary Denies difficulty urinating <Radha Maravilla - 04/26/22 10:21> - *Musculoskeletal Denies abnormal walking, Denies body aches <Radha Maravilla - 03/14/22 10:21> - *Neurologic Reports seizure-like activity (Years ago after head trauma with a
--- NOTE | 2022-03-14 13:32 | HMH.ACPN2 ---
Internal Medicine - PN: Subj *Date: 03/14/22 *Time: 13:32 Interval history: Patient is adamant that she be discharged home today. Exam Vital signs and Labs for Last 24 Hours: Temp Pulse Resp BP Pulse Ox 98.3 F 78 17 158/84 H 95 03/14/22 08:00 03/14/22 08:00 03/14/22 08:00 03/14/22 08:00 03/14/22 08:00 Laboratory Results - last 24 hr 03/13/22 19:17: SARS-CoV-2 (PCR) Not detected, Influenza A Untype (PCR) Not detected, Influenza Type B (PCR) Not detected 03/13/22 19:25: WBC 9.0, RBC 4.64, Hgb 13.7, Hct 40.7, MCV 87.6, MCH 29.6, MCHC 33.8, RDW 14.0, Plt Count 424, MPV 7.5, Neut % (Auto) 74.5, Lymph % (Auto) 17.1, [place] % (Auto) 4.9, Eos % (Auto) 1.5, Baso % (Auto) 2.0, Neut # (Auto) 6.7, Lymph # (Auto) 1.5, [place] # (Auto) 0.4, Eos # (Auto) 0.1, Baso # (Auto) 0.2 03/13/22 19:25: Sodium 137, Potassium 3.3 L, Chloride 106, Carbon Dioxide 24, Anion Gap 10.3, BUN 4 L, Creatinine 0.60, Estimated Creat Clear 74, Estimated GFR 101, Est GFR ( Amer) 122, Glucose 100, Calcium 10.0, Total Bilirubin 0.7, AST 23, ALT 15, Alkaline Phosphatase 145 H, Total Protein 7.0, Albumin 4.0, Globulin 3.0, Albumin/Globulin Ratio 1.3, Amylase 61, Lipase 33 03/13/22 20:30: Stl Aeromonas (PCR) Not detected, Stl C. cayetanensis PCR Not detected, Stool Rotavirus (PCR) Not detected, Stl Adenov F 40/41 PCR Not detected, Stool Astrovirus (PCR) Not detected, Stool Campylobacter PCR Not detected, Stl C.difficile Tox PCR Not detected, Stool Cryptosporidium PCR Not detected, Stl E.coli Shiga Tox PCR Not detected, Stool E coli O157 PCR Not detected, Stl Enterotoxigenic E PCR Not detected, Stool EPEC (PCR) Not detected, Stool EAEC (PCR) Not detected, Stl E. histolytica PCR Not detected, Stool Giardia Lamblia PCR Not detected, Stool Salmonella PCR Not detected, Stool Sapovirus (PCR) Not detected, Stl P. shigelloides PCR Not detected, Stl Shigella/EIEC PCR Not detected, St Y.enterocolitica PCR Not detected, Stool Vibrio (PCR) Not detected, Stl Vibrio cholerae PCR Not detected, Stl Norovirus GI/GII PCR Not detected 03/14/22 06:22: WBC 8.0, RBC 4.12 L, Hgb 12.2 D, Hct 36.5 L, MCV 88.6, MCH 29.7, MCHC 33.5, RDW 13.9, Plt Count 334, MPV 7.7, Neut % (Auto) 70.8, Lymph % (Auto) 21.0, [place] % (Auto) 5.7, Eos % (Auto) 1.7, Baso % (Auto) 0.9, Neut # (Auto) 5.7, Lymph # (Auto) 1.7, [place] # (Auto) 0.5, Eos # (Auto) 0.1, Baso # (Auto) 0.1 03/14/22 06:22: Sodium 136, Potassium 3.8, Chloride 108 H, Carbon Dioxide 22, Anion Gap 9.8, BUN 6 L D, Creatinine 0.50 L, Estimated Creat Clear 71, Estimated GFR 125, Est GFR ( Amer) 151 D, Glucose 65 L D, Calcium 9.3, Magnesium 1.6, Triglycerides 78, Cholesterol 156, LDL Cholesterol Direct 69.11 L, VLDL Cholesterol 16, HDL Cholesterol 69 H, Cholesterol/HDL Ratio 2.3 I & O for Last 24 hours: Intake & Output 03/11/22 03/12/22 03/13/22 03/14/22 23:59 23:59 23:59 23:59 Intake Total 2101 Balance 2101 Weight 180 lb 171 lb 6 oz Assessment and Plan (1) Gastroenteritis Status: Acute Category: Medical Code(s): K52.9 - Noninfective gastroenteritis and colitis, unspecified (2) Dysphagia Status: Acute Category: Medical Code(s): R13.10 - Dysphagia, unspecified (3) Gastritis Status: Acute Qualifiers: Gastritis type: unspecified gastritis Chronicity: acute Gastritis bleeding: without bleeding Qualified Code(s): K29.00 - Acute gastritis without bleeding Category: Medical Code(s): K29.70 - Gastritis, unspecified, without bleeding (4) Hypokalemia Status: Acute Category: Medical Code(s): E87.6 - Hypokalemia - Assessment and plan all Dx Assessment and Plan for all problems:: Potassium has been corrected and Dr. Stark has made arrangements for testing to be done as an outpatient. OK for discharge now.
--- NOTE | 2022-03-14 22:37 | HMH.DCSUM ---
General - General Admission date:: 03/14/22 Discharge date: 03/14/22 HPI HPI: Ms. Walton is a 61-year-old female patient who presented to [facility] with progressive nausea vomiting and diarrhea and abdominal pain over the past 3 days. She states she has been unable to retain food and fluids. She states she is voiding QS. She gives a history of having difficulty for the past few months with the same although not nearly as severe. She states her had a similar virus the past week with the same symptoms. With evaluation in the emergency room chest x-ray revealed no acute cardiopulmonary findings. He also had a CT of the abdomen/pelvis which revealed no acute findings or specific etiology for symptoms identified. Chronic/ancillary findings with hiatal hernia and probable esophagitis as well as probable gastritis similar to prior exam of 02/08/2022. Laboratory data showed a normal CBC chemistries did show low potassium at 3.3 with repeat this a.m. of 3.8. BUN was 4 and creatinine was 0.6. Liver function studies showed an alkaline phosphatase elevated at 145 and otherwise was normal. Amylase was normal at 61 and lipase normal at 33. She did receive several IV boluses along with antiemetics and pain medicine. She was also given an IV PPI. She was thus admitted for further evaluation and treatment. She was seen by surgeon Dr. Stark this morning Who noted dysphagia and ordered a barium swallow. With recommendations for an EGD in the near future to be completed as an outpatient. With exam patient continues to be nauseated. She says she has had vomiting and diarrhea since being in the emergency room. She remains n.p.o. Hospital Course Hospital Course: The patient was hydrated with IV fluids and given antiemetics. Dr. Stark ordered a barium swallow. By 03/14/2022, the patient was adamant that she be discharged home. Her potassium has been corrected and Dr. Stark made arrangements for testing to all be done on an outpatient basis. She was stable for discharge. Her stool panel was negative. Objective Vital signs: Temp Pulse Resp BP Pulse Ox 98.3 F 78 17 158/84 H 95 03/14/22 08:00 03/14/22 08:00 03/14/22 08:00 03/14/22 08:00 03/14/22 08:00 Narrative: - Constitutional no acute distress <Radha Maravilla - 03/14/22 10:21> Comments: Falls asleep frequently during exam <Radha Maravilla 03/14/22 10:21> - *Routine HEENT Exam Head: Present: normocephalic, atraumatic <Caitlin Maravillaformerly [facility], [facility] 03/14/22 10:21> Eye: Present: PERRL. Absent: conjunctival icterus, scleral injection <Caitlin Maravillaformerly [facility], [facility] 03/14/22 10:21> ENT: Present: mucous membranes dry, oropharynx clear <Caitlin Maravillaformerly [facility], [facility] 03/14/22 10:21> - *Routine Neck Exam Present: supple. Absent: normal carotid upstroke, lymphadenopathy, thyromegaly <Caitlin Maravillaformerly [facility], [facility] 03/14/22 10:21> - *Routine Respiratory Exam Present: CTA bilaterally (Anteriorly and posteriorly) <Caitlin Maravillaformerly [facility], [facility] 03/14/22 10:21> - *Routine Cardiovascular Exam Present: RRR [facility] 10:21> - *Routine Abdominal Exam Present: soft, normoactive bowel sounds, tenderness (Epigastrium), surgical scars (Midline). Absent: guarding <[facility] 03/14/22 10:21> - *Routine Rectal Exam Rectal:: deferred [facility] 03/14/22 10:21> - *Routine Genitalia Exam Genitalia:: deferred [facility] 03/14/22 10:21> - *Routine Extremities Exam Present: full ROM, pulses intact. Absent: edema, calf tenderness <[facility] 03/14/22 10:21> - *Routine Neurological Exam Present: alert, oriented X3 Results Labs on day of discharge: Labs from last 24 hours 03/14/22 03/14/22 03/13/22 06:22 06:22 20:30 WBC 8.0 RBC 4.12 L Hgb 12.2 D Hct 36.5 L MCV 88.6 MCH 29.7 MCHC 33.5 RDW 13.9 Plt Count 334 MPV 7.7 Neut % (Auto) 70.8 Lymph % (Auto) 21.0 [place] % (Auto) 5.7 Eos % (Auto) 1.7 Bas
--- NOTE | 2022-03-15 15:22 | CARE MANAGER ---
Contacted patient related to discharge from the hospital. She states she still has vomiting and diarrhea but is able to eat a little and drink. She is monitoring for dehydration. She denies questions or concerns and is aware of her doctor appointments. VARGHESE Garcia
== END 2022-03-14 19:10 | disposition home or self-care (01) ==
LOC: ER 20:59 → 2ND 03-14 00:15
PROVIDERS: Admitting Provider Family Medicine; Emergency Provider Emergency Medicine; PCP Pediatrics; Visit Provider Family Medicine
DX: K29.00 Acute gastritis without bleeding (principal); Z20.822 Contact with and (suspected) exposure to COVID-19; F17.210 Nicotine dependence, cigarettes, uncomplicated; R13.10 Dysphagia, unspecified; E87.6 Hypokalemia; E78.5 Hyperlipidemia, unspecified
CPT/HCPCS: G0378; 36415; 71046; 74177; 80048; 80053; 80061; 82150; 83690; 83735; 85025; 87507; 99285; C9803; J2405; Q9967; U0003; U0005